=== PATIENT | female | born 1945 | race Caucasian/White ===

== ENCOUNTER 2017-03-02 12:42 | Emergency (ER) | payer OTHER ==
[~2017-03-02] VITALS: Ht 157.5 cm; Wt 61.2 kg
[2017-03-02] MEDS ORDERED: ESCITALOPRAM OX10 MG PO (13:53)
[2017-03-02] MEDS ORDERED: LIPITOR 20 MG T20 M1 PO (13:54)
[2017-03-02] MEDS ORDERED: DILTIAZEM ER180 MG PO (13:54)
[2017-03-02] MEDS ORDERED: VALSARTAN-HCTZ1 EAC1 PO (13:54)
[2017-03-02] MEDS ORDERED: NORCO 5-325 TA1 EACH PO (14:30)
== END 2017-03-02 16:43 | disposition home or self-care (01) ==
LOC: ER 12:42
DX: S43.085A Other dislocation of left shoulder joint, initial encounter (principal); E78.5 Hyperlipidemia, unspecified; I10 Essential (primary) hypertension; W00.0XXA Fall on same level due to ice and snow, initial encounter; Y93.89 Activity, other specified; Y92.89 Other specified places as the place of occurrence of the external cause; Y99.8 Other external cause status

== ENCOUNTER → 2017-12-05 | Outpatient (CLI) | payer OTHER ==
[~2017-12-05] MED LIST: DILTIAZEM ER180 MG PO; ESCITALOPRAM OX10 MG PO; LIPITOR 20 MG T20 M1 PO; NORCO 5-325 TA1 EACH PO; VALSARTAN-HCTZ1 EAC1 PO
== END ==
LOC: ULTRA 08:14
DX: K76.0 Fatty (change of) liver, not elsewhere classified (principal)

== ENCOUNTER → 2017-12-29 | Outpatient (CLI) | payer OTHER ==
--- NOTE | ~2017-12-29 | EXE ---
[facility] [place] [address] STRESS ECHOCARDIOGRAM Name: LAURENCE GORMAN Room #: REG [facility] [id number] Admission: 12/29/17 Attend Phys: Gigi Hazel, Discharge: Date of : 45 Date of Service: 12/29/17 1151 Report #: [id number] THIS REPORT FOR: //name// APPROVED REPORT Study performed: 12/29/2017 09:32:05 Exam: Stress Echocardiogram Indication: Hypertension Patient Location: Out-Patient Stress Nurse: Brittny Gusman RN Room #: Echo lab 2 Status: routine Ht: 5 ft 2 in HR: 64 bpm BP: 132/84 mmHg Rhythm: NSR Medical History Medical History: HTN Allergies: No known drug allergies Cardiac Risk Factors: HTN Exercise History: Physically active Procedure The patient underwent an Exercise Stress Test using the Jonathan Protocol. Blood pressure, heart rate, and EKG were monitored. An Echocardiogram was performed by library information technician in four stages in quad fashion. At peak stress, four selected images were obtained and placed side by side with resting images for comparison. Echo Enhancing Agent Indication: Endocardial border delineation Agent(s) / Amount(s) Used: Optison 5 cc Stress Test Details Stress Test: Exercise stress testing was performed using a Jonathan protocol. HR Resting HR: 64 bpm Max Heart Rate (APMHR): 148 bpm Max HR Achieved: 141 bpm Target HR (85% APMHR): 125 bpm % of APMHR: 95 Recovery HR: 81 bpm HR response to stress: Normal HR response to stress [facility] [address] [place] [address] STRESS ECHOCARDIOGRAM Name: LAURENCE GORMAN Room #: REG [facility] [id number] Admission: 12/29/17 Attend Phys: Gigi Hazel, Discharge: Date of : 45 Date of Service: 12/29/17 1151 Report #: [id number] Resting BP: 132/84 mmHg Max BP: 152/78 mmHg Recovery BP: 150/80 mmHg ECG Resting ECG: Sinus Rhythm, nonspecific ST-T abnormalities Stress ECG: Sinus Tachycardia Recovery ECG: Sinus Rhythm, nonspecific ST-T abnormalities Clinical Reason for Termination: Maximal effort Exercise duration: 5 min 03 sec Highest Stage Achieved: Stage 2: 2.5 mph at 12% grade. Exercise capacity: 7 METs Overall Exercise Capacity for Age: Average Stress ECG Conclusion 1. Subjectively negative for ischemia 2. Baseline ST segment abnormalities noted rendering ST shift strictly not interpretable 3. Poor functional capacity Pre-Stress Echo The resting Echocardiogram showed normal left ventricular contractility with an estimated Ejection Fraction of about >55%. Normal wall motion in all segments on baseline images. Post-Stress Echo The stress Echocardiogram showed normal left ventricular contractility with an estimated Ejection Fraction of about 65-70%. Clinical Normal augmentation of myocardial wall segments using a 17 segment model. Conclusion Clinical Response: Non-ischemic Exercise Capacity: Below Average Stress ECG Response: Indeterminant Stress Echo Images: Non-ischemic 1. Low risk study 2. Poor functional capacity [facility] [address] [place] [address] STRESS ECHOCARDIOGRAM Name: LAURENCE GORMAN Room #: [facility] [id number] Admission: 12/29/17 Attend Phys: Gigi Hazel, Discharge: Date of : 45 Date of Service: 12/29/17 115 Report #: [id number] Other Information Study Quality: Adequate <Conclusion> 1. Low risk study 2. Poor functional capacity <ELECTRONICALLY SIGNED> By: Washington Joshi MD 12/29/171150 50 50 Washington Joshi MD /INF
== END ==
LOC: CV 09:18
DX: I10 Essential (primary) hypertension (principal); E78.5 Hyperlipidemia, unspecified

== ENCOUNTER → 2018-06-12 | Outpatient (CLI) | payer OTHER | LOC: MRI 13:48 | DX: R42 Dizziness and giddiness (principal) ==